=== PATIENT | female | born 1935 | race Caucasian/White ===

== ENCOUNTER 2017-06-01 11:30 | Day surgery (SDC) | payer MEDICARE, BC ==
[2017-06-01 11:56] VITALS: RESP 18
[2017-06-01] MEDS ORDERED: DEXAMETHASONE SOD PHOS PF 10 MG/ML SOL IJ ONE (12:02)
[2017-06-01] MEDS ORDERED: BUPIVACAINE HCL 0.25% MPF 10 ML SOL INFIL ONE (12:02)
[2017-06-01 12:35] VITALS: TEMP 97.1
[2017-06-01 12:40] VITALS: BP 164/99; PULSE 71; O2SAT 96
== END 2017-06-01 13:08 | disposition home or self-care (01) | DRG 552 ==
LOC: SURG 11:30
PROVIDERS: ATTEND Nurse Anesthetist, Certified Registered
DX: M48.062 Spinal stenosis, lumbar region with neurogenic claudication (principal)
CPT/HCPCS: J1100